=== PATIENT | male | born 1985 | race Caucasian/White ===

== ENCOUNTER 2019-03-29 18:19 | Emergency (ER) | payer BC, MEDICARE ==
[2019-03-29] MEDS ORDERED: ONDANSETRON HCL IV 4 MG/2 ML VIAL IVP PRN (18:50)
--- NOTE | 2019-03-29 18:55 | Emergency Department Record ---
History of Present Illness - General Chief Complaint: Dizziness Stated Complaint: DIZZINESS,NAUSEA,VOMITING,TIRED Time Seen by Provider: 03/29/19 18:44 Source: Patient Mode of Arrival: Wheelchair Limitations: No limitations - History of Present Illness Initial Comments: 34 yo male presents to ED for evaluation of dizziness, nausea, and vomiting symptoms today. Patient reports mild headache symptoms, denies fever symptoms. Patient denies abdominal pain symptoms, but is concerned about a possible shunt malfunction resulting in his dizziness and vomiting symptoms. Patient reports shunt malfunction 25 years ago at the age of 9 years, denies issues since that time with his shunt. MD Complaint: Dizziness Onset/Timin -: Days(s) Description: "Room spinning" History of Same: No History of Trauma: No Severity: Moderate Improves With: Nothing Worsens With: Nothing Associated Symptoms: Denies other symptoms - [place] Coma Scale Eye Response: (4) Open spontaneously Motor Response: (6) Obeys commands Verbal Response: (5) Oriented [place] Total: 15 - Related Data Home Medications Medication Instructions Recorded Confirmed Last Taken Meclizine HCl [Antivert] 25 mg PO Q8H PRN 03/29/19 03/29/19 Unknown Previous Rx's Medication Instructions Recorded Lorazepam [Ativan] 0.5 mg PO BID #10 tablet 12/17/13 Allergies Allergy/AdvReac Type Severity Reaction Status Date / Time latex Allergy RASH Verified 03/29/19 18:58 vancomycin Allergy SKIN Verified 03/29/19 18:58 IRRITATION Review of Systems Constitutional: Denies: Chills, Fever, Malaise, Night sweats Eyes: Denies: Eye discharge, Eye pain ENT: Denies: Congestion, Ear pain, Epistaxis Respiratory: Denies: Cough, Dyspnea Cardiovascular: Denies: Chest pain, Dyspnea on exertion Endocrine: Denies: Fatigue, Heat or cold intolerance Gastrointestinal: Reports: Nausea, Vomiting. Denies: Abdominal pain, Constipati on Genitourinary: Denies: Incontinence, Retention Musculoskeletal: Denies: Arthralgia, Back pain Skin: Denies: Bruising, Change in color Neurological: Reports: Headache, Vertigo. 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 negative: Conjunctival injection, Periorbital swelling, Periorbital tenderness, Scleral icterus - ENT Ear exam: negative: Auricular hematoma, Auricular trauma Nasal Exam: negative: Active bleeding, Discharge, Dried blood, Foreign body Mouth exam: negative: Drooling, Laceration, Muffled voice, Tongue elevation - Neck Neck exam: Normal inspection. negative: Meningismus, Tenderness - Respiratory Respiratory exam: Normal lung sounds bilaterally. negative: Rales, Respiratory distress, Rhonchi, Stridor - Cardiovascular Cardiovascular Exam: Regular rate, Normal rhythm, Normal heart sounds - GI/Abdominal GI/Abdominal exam: Soft. negative: Rebound, Rigid, Tenderness - Rectal Rectal exam: Deferred - exam: Deferred - Extremities Extremities exam: Other (Braces to the lower extremities on examination.). negative: Calf tenderness, Pedal edema, Tenderness - Back Back exam: Denies: CVA tenderness (R), CVA tenderness (L) - Neurological Neurological exam: Alert, Oriented X3 - Psychiatric Psychiatric exam: Normal affect, Normal mood - Skin Skin exam: Normal color. negative: Abrasion Type of lesion: negative: abrasion Course - Reevaluation(s) Reevaluation #1: 03/29/19 19:30 Laboratory studies were reviewed and appear grossly unremarkable for an acute process. Reevaluation #2: 03/29/19 19:36 CT Brain: Left ventricular shunt tube Lateral ventricles are increased since prior study concerning for shunt malfunction Chiari II malformation unchanged Patient was updated on all results, will initiate transfer for neurosurgical evaluation. Reevaluation #3: 03/29/19 19:53 Case was discussed with Dr. Barber at [facility], will accept patient via transfer. Patient and his SO were updated on all results, patient appears stable for tra nsfer at this time. Medical Decision Making - Lab Data Result diagrams: 03/29/19 19:06 03/29/19 19:06 Disposition Disposition: Transfer Clinical Impression: Shunt malfunction Qualifiers: Encounter type: initial encounter Qualified Code(s): T85.618A - Breakdown (mechanical) of other specified internal prosthetic devices, implants and grafts, initial encounter Nausea & vomiting Qualifiers: Vomiting type: unspecified Vomiting Intractability: non-intractable Qualified Code(s): R11.2 - Nausea with vomiting, unspecified Disposition: Acute Care Hospital Transfer Transfer To: [facility] Reason For Transfer: Neurosurgical evaluation Accepting Physician: Elisabeth Time Discussed w/Accepting Physician: 19:54 Condition: (2) Stable Forms: Patient Portal Access Time of Disposition: 19:54 Quality - Quality Measures Quality Measures: N/A - Blood Pressure Screening Does Patient Have Any of the Following: No Blood Pressure Classification: Hypertensive Reading Systolic Measurement: 130 Diastolic Measurement: 90 Screening for High Blood Pressure: < First Hypertensive BP, F/U Documented > [G8950] First Hypertensive Follow-up Interventions: Referral to alternative/primary care provider.
[2019-03-29] MEDS ORDERED: 0.9 % SODIUM CHLORIDE 1000ML 1,000 ML IV SCH (19:00)
[2019-03-29 19:09] LABS: ABSOLUTE NEUTROPHIL COUNT 5.84; BASO % 0.5 % (0-6); EOS % 1.6 % (0-6); GRAN % 72.7 % (47-80); HEMATOCRIT 47.5 % (42.0-52.0); HEMOGLOBIN 16.4 gm/dl (14.0-18.0); LYMPH % 19.9 % (16-45); MEAN CELL VOLUME 88.8 fl (81-97); MEAN CORPUSCULAR HEMOGLOBIN 30.7 pg (27-33); MEAN CORPUSCULAR HGB CONC 34.5 g/dl (32-36); MEAN PLATELET VOLUME 10.2 fl (7.4-10.4); MONO % 5.3 % (0-9); PLATELET COUNT 281 K/uL (130-400); RED BLOOD COUNT 5.35 M/uL (4.40-5.70); RED CELL DISTRIBUTION WIDTH 13.2 % (11.5-14.5)
[2019-03-29 19:10] LABS: URINE APPEARANCE CLEAR; URINE BILIRUBIN NEGATIVE (NEGATIVE); URINE BLOOD NEGATIVE (NEGATIVE); URINE COLOR YELLOW; URINE GLUCOSE (UA) NEGATIVE (NEGATIVE); URINE KETONE NEGATIVE (NEGATIVE); URINE LEUKOCYTE ESTERASE NEGATIVE (NEGATIVE); URINE NITRITE NEGATIVE (NEGATIVE); URINE PROTEIN NEGATIVE (NEGATIVE); URINE UROBILINOGEN 0.2 E.U./dL (0.20 - 1.00)
[2019-03-29 19:23] LABS: BLOOD UREA NITROGEN 10 mg/dL (6-20); CREATININE 0.8 mg/dL (0.7-1.2); EST GLOMERULAR FILTRATION RATE > 60 mL/min
[2019-03-29 19:24] LABS: TOTAL PROTEIN 7.5 g/dL (6.6-8.7)
[2019-03-29 19:25] LABS: INFLUENZA A NEGATIVE (NEGATIVE); INFLUENZA B NEGATIVE (NEGATIVE)
[2019-03-29 19:26] LABS: GLUCOSE,RANDOM 104 mg/dL (74-109)
[2019-03-29 19:28] LABS: ALT/SGPT 27 U/L (<41)
[2019-03-29 19:29] LABS: ALB/GLOB RATIO 1.7 (1.1-1.8); ALBUMIN 4.7 g/dL (4.0-5.0); ALKALINE PHOSPHATASE 75 U/L (40-129); AST/SGOT 22 U/L (10.0-50.0)
--- NOTE | 2019-03-29 19:34 | CT SCAN REPORT ---
EXAMINATION: CT Head without IV Contrast EXAM DATE: 03/29/2019 7:21 PM TECHNIQUE: Standard protocol CT images of the head were obtained without intravenous contrast. Marie l and sagittal reconstructed images were created. INDICATION: Possible shunt malfunction COMPARISON: 08/16/2010 HAND DOMINANCE: Unknown. ENCOUNTER: Not applicable FINDINGS: 1. There is no intracranial mass, midline shift, extraaxial fluid collection or hemorrhage. 2. Chiari II malformation, small posterior fossa caudal displacement of the cerebellum and brainstem with medullary kinking. Elongated fourth ventricle. Callosal dysgenesis. Left frontal ventricular sh unt tube. Lateral ventricles have increased in size as prior study concerning for shunt malfunction 3. There are no suspicious area of altered attenuation. 4. There is no fracture. 5. The visualized aspects of the orbits, paranasal sinuses, and mastoid air cells are normal. IMPRESSION: 1. Left frontal ventricular shunt tube. Lateral ventricles increased since size since prior study con cerning for shunt malfunction 2. Chiari II malformation as described above unchanged from prior study Dictated by: William Angela MD on 03/29/2019 7:24 PM. .
== END 2019-03-29 20:59 | disposition short-term general hospital (02) ==
LOC: ER 18:19
DX: T85.01XA Breakdown (mechanical) of ventricular intracranial (communicating) shunt, initial encounter (principal); R11.2 Nausea with vomiting, unspecified; R42 Dizziness and giddiness; R51 Headache; Z87.891 Personal history of nicotine dependence
CPT/HCPCS: 99285 ×2; 96374; 96361; 85025; 80053; 81003; 87400; 70450; J2405; J7030